=== PATIENT | male | born 1985 | race American Indian/Alaskan Native ===

== ENCOUNTER 2016-06-25 07:17 | Emergency (ER) | payer SELFPAY ==
[2016-06-25 07:44] VITALS: BP 106/69
--- NOTE | 2016-06-25 08:00 | Emergency Department Report ---
ED Rash HPI - HPI Chief Complaint: Dental/Oral Stated Complaint: MOUTH INFECTION Time Seen by Provider: 06/25/16 07:55 Duration: 4 Days Location: Head Rash Symptoms: Yes Itching (itching and yellowish scab-like crusting at left oral commisure), Yes Peeling, No Facial Swelling, No Tongue/Oral Swelling, No Breathing Difficulties, No Choking Sensation, No Wheezing/Dyspnea, No Blistering , No Fever, No Lightheaded, No Malaise, No Myalgias Severity: mild Other History: 31-year-old male past medical history none presents with complaint of slightly itchy yellow crusty rash to left corner of mouth. States that it started 4 days ago and has become progressively crusty her. Patient denies any fever or chills no intraoral involvement no toothache no throat pain no sore throat no dyspnea no difficulty breathing. Patient speaking in full sentences without any difficulty whatsoever. No complaints of facial pain only irritation to left corner of mouth. Eyes any trauma no pus or blood drainage, only complaining of itchy crusting to this area. ED Review of Systems ROS: Stated complaint: MOUTH INFECTION Other details as noted in HPI Constitutional: denies: chills, fever Eyes: denies: eye pain, eye discharge, vision change ENT: other (itchy yellow crusting at left oral commissure). denies: ear pain, throat pain Respiratory: denies: cough, shortness of breath, wheezing Cardiovascular: denies: chest pain, palpitations Endocrine: no symptoms reported Gastrointestinal: denies: abdominal pain, nausea, diarrhea Genitourinary: denies: urgency, dysuria Musculoskeletal: denies: back pain, joint swelling, arthralgia Skin: denies: rash, lesions Neurological: denies: headache, weakness, paresthesias Psychiatric: denies: anxiety, depression Hematological/Lymphatic: denies: easy bleeding, easy bruising ED Past Medical Hx - Past Medical History Previous Medical History?: No - Surgical History Past Surgical History?: No - Social History Smoking Status: Current Some Day Smoker Substance Use Type: Alcohol - Medications Home Medications: Home Medications Medication Instructions Recorded Confirmed Last Taken Type Mupirocin [Bactroban 2% CREAM] 1 applicatio TP TID #1 cream 06/25/16 Unknown Rx Rash Exam - Exam General: Vital signs noted. No distress. Alert and acting appropriately. HEENT: No Periorbital Edema, No Conjuctival Injection, No Chemosis, No Perioral Edema, No Tongue Edema, No Uvular Edema, No Compromised Airway, No Drooling Lungs: Yes Good Air Exchange (Normal Breath Sounds), No Wheezes, No Ronchi, No Stridor, No Cough, No Labored Respirations, No Retractions, No Use of Accessory Muscles, No Other Abnormal Lung Sounds Heart: Yes Regular, No Murmur Skin: Yes Encrustations (impetigo-like lesions left oral commissure no intraoral involvement whatsoever on the clinical exam), No Urticarial Rash, No Maculopapular Rash, No Morbilliform rash, No Bulla(e), No Excoriations, No Weeping, No Tenderness, No Erythema, No Edema Other: Positive: Abdomen Normal, Neurologic Normal, Musculoskeletal Normal ED Course Vital Signs 06/25/16 07:41 Temperature 98.1 F Pulse Rate 61 Respiratory 17 Rate Blood Pressure 106/69 O2 Sat by Pulse 98 Oximetry ED Medical Decision Making - Medical Decision Making A/P: Simple Impetigo 1-Bactroban cream Apply to affected area 3 times daily; re-evaluate after 3 to 5 days if no clinical response 2-Motrin when necessary for discomfort 3-advised patient to return if he experiences any intraoral lesions any difficulty chewing swallowing or if he develops facial pain and swelling with any associated fever or chills Critical care attestation.: If time is entered above; I have spent that time in minutes in the direct care of this critically ill patient, excluding procedure time. ED Disposition Clinical Impression: Impetigo Disposition: DISCHARGED TO HOME OR SELFCARE Is pt being admited?: No Does the pt Need Aspirin: No Condition: Stable Instructions: Impetigo (ED) Prescriptions: Mupirocin [Bactroban 2% CREAM] 1 applicatio TP TID #1 cream Referrals: [facility] [Outside] - 3-5 Days Time of Disposition: 08:01
== END 2016-06-25 08:04 | disposition home or self-care (01) ==
LOC: ED 07:17
DX: L01.00 Impetigo, unspecified (principal); F17.200 Nicotine dependence, unspecified, uncomplicated
CPT/HCPCS: 99282